=== PATIENT | male | born 1955 | race Caucasian/White ===

== ENCOUNTER 2018-12-10 09:49 | Emergency (ER) | payer MEDICAID ==
[~2018-12-10] VITALS: Ht 182.9 cm; Wt 83.9 kg
--- NOTE | 2018-12-10 10:33 | NUR ---
PT REC'D TO ER C/O WEAKNESS FTF IV STRIED NECK NOT ABLE AT THIS TIME . SENT TO CT
--- NOTE | 2018-12-10 11:01 | NUR ---
HARD STICK CALLED FOR MID LINE
[2018-12-10 11:10] LABS: BASOPHILS # (AUTO) 0.1 /CMM (0.0-0.2); BASOPHILS % (AUTO) 0.4 % (0.0-2.0); EOSINOPHILS % (AUTO) 0.2 % (0.0-6.0); HEMATOCRIT 43 % (39-51); HEMOGLOBIN 14.3 g/dL (13.5-17.5); LYMPHOCYTES # (AUTO) 1.4 /CMM (0.8-4.8); LYMPHOCYTES % (AUTO) 8.3 % (20.0-44.0); MEAN CORPUSCULAR HGB CONC 33 g/dl (31.0-36.0); MEAN CORPUSCULAR VOLUME 98 fL (80-96); MONOCYTES # (AUTO) 1.1 /CMM (0.1-1.30); MONOCYTES % (AUTO) 6.8 % (2.0-12.0); NEUTROPHILS # (AUTO) 13.8 /CMM (1.8-8.9); NEUTROPHILS % (AUTO) 84.3 % (43.0-81.0); PLATELET COUNT (AUTO) 421 /CMM (150-450); RED BLOOD CELL COUNT(AUTO) 4.42 MIL/uL (4.5-6.0); WHITE BLOOD COUNT (AUTO) 16.4 K/uL (4.3-11.0)
[2018-12-10 11:21] LABS: CALCIUM, SERUM 9.9 mg/dL (8.5-10.1); CARBON DIOXIDE 31 mmol/L (21-32); CHLORIDE 100 mmol/L (98-107); GLUCOSE 124 mg/dL (74-106); POTASSIUM 4.2 mmol/L (3.5-5.1); SODIUM SERUM 138 mmol/L (136-145); UREA NITROGEN, BLOOD 22 mg/dL (7-18)
[2018-12-10 11:24] LABS: SERUM AMMONIA 9 umol/L (11-32)
[2018-12-10 11:38] LABS: ALANINE AMINOTRANSFERASE 104 U/L (12-78); ALBUMIN 2.5 g/dL (3.4-5.0); ALCOHOL, BLOOD 6 mg/dL (0-0); ALKALINE PHOSPHATASE 89 U/L (46-116); ASPARTATE AMINOTRANSFERASE 115 U/L (15-37); BILIRUBIN,DIRECT 0.3 mg/dL (0.0-0.2); BILIRUBIN,TOTAL 0.6 mg/dL (0.2-1.0); TOTAL PROTEIN, SERUM 8.6 g/dL (6.4-8.2)
[2018-12-10] MEDS ORDERED: DIVA-78 PO ×2 (11:43)
[2018-12-10] MEDS ORDERED: CLOP75TA15 PO (11:43)
[2018-12-10] MEDS ORDERED: LEVO25TA9 PO (11:43)
--- NOTE | 2018-12-10 11:45 | NUR ---
PT SLEEPING SOUNDLY RESP EVEN UNLABORED VSS
[2018-12-10] MEDS ORDERED: LEVE100023 PO (11:47)
[2018-12-10] MEDS ORDERED: ASPI-1152 PO (11:47)
[2018-12-10] MEDS ORDERED: METO25TA6 PO (11:47)
[2018-12-10] MEDS ORDERED: LISI40TA4 PO (11:47)
[2018-12-10] MEDS ORDERED: GABA600T12 PO (11:47)
[2018-12-10] MEDS ORDERED: ALPR1TAB7 PO (11:47)
--- NOTE | 2018-12-10 12:22 | NUR ---
MONOGRAM TECHNICIAN LESLYE [phone]; PT WILL MOST LIKELY BE TRANSFERRED TO [facility], WILL PRESENT TO DR. PENDLETON. WILL CALL BACK
[2018-12-10] MEDS ORDERED: IV NS 0.9% 1,000 ML BAG IV ONE (13:00)
[2018-12-10] MEDS ORDERED: VANCOMYCIN 1 GM in IV D5W 250 ML IV ONE (13:00)
--- NOTE | 2018-12-10 13:14 | NUR ---
IV STARTED 20 G LEFT UPPER ARM HEPLOCKED
--- NOTE | 2018-12-10 13:19 | NUR ---
[facility] CALLED AND PT FOR SURE IS GOING TO BE TRANSFERED TO [facility]. WILL CALL BACK FOR BED AND INFO.
--- NOTE | 2018-12-10 13:30 | NUR ---
pt tolerated iv 18 g upper left arm infusing meds per
[2018-12-10] MEDS ORDERED: CEFEPIME 1 GM in IV D5W 50 ML IV ONE (14:00)
--- NOTE | 2018-12-10 14:43 | NUR ---
RETAIL AIDE CALLED AND PT IS BEING TRASNFERED TO [facility]. GAVE BED 205. ETA 45 MINUTES FOR AMBULANCE. NUSE NAME MAY. NUMBER FOR REPORT. [phone].
--- NOTE | 2018-12-10 15:05 | NUR ---
CALLED REPORT TO MAY NIKKI PT STABLE FOR [facility]
[2018-12-10 15:08] VITALS: BP 114/69
== END 2018-12-10 15:05 | disposition short-term general hospital (02) ==
LOC: ER 09:51
DX: J18.9 Pneumonia, unspecified organism (principal); I25.2 Old myocardial infarction; Z95.818 Presence of other cardiac implants and grafts; Z79.899 Other long term (current) drug therapy; Z79.82 Long term (current) use of aspirin
CPT/HCPCS: 36415; 70450; 71045; 80048; 80076; 80307; 80329; 82140; 82962; 83605; 84145; 84484; 85025; 85730; 87040 ×2; 87081; 93005; 96365; 99285; G0480; J0692; J3370; J7030; J7040; J7060 ×2; 36569